=== PATIENT | female | born 1970 | race Two or more races ===

== ENCOUNTER 2018-01-24 05:57 | Inpatient (IN) | payer OTHER ==
[~2018-01-24] VITALS: Ht 175.3 cm; Wt 137.4 kg
[~2018-01-24 05:57] MED LIST: AVAPRO300 MG PO; FORTAMET1000 MG PO; GLIMEPIRIDE4 MG PO; LASIX20 MG PO
[2018-01-25] MEDS ORDERED: PERCOCET 5-3251 EACH PO (10:48)
[2018-01-25] MEDS ORDERED: SYNTHROID200 MCG PO (10:49)
== END 2018-01-25 11:54 | disposition home or self-care (01) | DRG 627 ==
LOC: CIR.AMB 05:57 → O/R 10:30 → RECOVERY 11:30 → EDSTATUS 11:30 → CIR.AMB 11:30 → SURH 13:55
PROVIDERS: Surgery
PROC: 07T20ZZ Resection of Left Neck Lymphatic, Open Approach (ICD-10-PCS; 2018-01-24)
PROC: 07T10ZZ Resection of Right Neck Lymphatic, Open Approach (ICD-10-PCS; 2018-01-24)
PROC: 0GBN0ZZ Excision of Right Inferior Parathyroid Gland, Open Approach (ICD-10-PCS; 2018-01-24)
PROC: 0GTK0ZZ Resection of Thyroid Gland, Open Approach (ICD-10-PCS; principal; 2018-01-24 07:00)
DX: C73 Malignant neoplasm of thyroid gland (principal); E21.0 Primary hyperparathyroidism; D35.1 Benign neoplasm of parathyroid gland; I11.9 Hypertensive heart disease without heart failure; E11.9 Type 2 diabetes mellitus without complications; G47.33 Obstructive sleep apnea (adult) (pediatric); E66.01 Morbid (severe) obesity due to excess calories; I87.2 Venous insufficiency (chronic) (peripheral)